=== PATIENT | male | born 1980 | race African-American/Black ===

== ENCOUNTER 2018-03-12 18:21 | Inpatient (IN) | payer MEDICAID ==
[~2018-03-12] VITALS: Ht 172.7 cm; Wt 65.8 kg
[2018-03-12] MEDS ORDERED: SODIUM CHLORIDE 0.9% 1,000 ML IV ONE (18:31)
[2018-03-12] MEDS ORDERED: LORAZEPAM 2MG/ML CPJ ONE (18:33)
[2018-03-12] MEDS ORDERED: LORAZEPAM 2MG/ML CPJ IV ONE ×3 (18:45→20:00)
[2018-03-12] MEDS ORDERED: LEVETIRACETAM 500MG PREMIX 100 ML IV ONE ×2 (18:45→20:00)
[2018-03-12 19:21] LABS: HEMATOCRIT. 51.2 % (42.0-52.0); HEMOGLOBIN. 15.7 g/dL (14.0-18.0); MEAN CORPUSCULAR HEMOGLOBIN 28.9 pg (28.0-32.0); MEAN CORPUSCULAR VOLUME 94.2 fL (80.0-94.0); MEAN PLATELET VOLUME 11.1 fl (7.4-10.4); PLATELET 190 x1000/uL (130-400); RED BLOOD CELL COUNT 5.44 mill/uL (4.7-6.1); RED CELL DISTRIBUTION WIDTH 14.1 % (11.6-14.6)
[2018-03-12 19:25] LABS: CHLORIDE 102 mEq/L (98-107)
[2018-03-12 19:31] LABS: ETHANOL BLOOD < 10 mg/dL
[2018-03-12 19:37] LABS: CARBAMAZEPINE < 0.5 ug/mL (4-12); PHENOBARBITAL < 2.1 ug/mL (15.0-40.0)
[2018-03-12 19:55] LABS: NUCLEATED RED BLOOD CELLS 1 /100 WBC; PLATELET ESTIMATE NORMAL
[2018-03-12 21:24] LABS: BG BASE EXCESS -4.8 mmol/L (-2.0-2.0); BG CARBOXYHEMOGLOBIN 0.3 % (0.5-1.5); BG DEOXYHEMOGLOBIN 5.2 % (0.0-5.0); BG FRACTION INSPIRED OXYGEN 21; BG HCO3 ACT 20.2 mmol/L (22.0-26.0); BG METHEMOGLOBIN 0.3 % (0.0-1.5); BG OXYGEN SATURATION 94.8 % (92.0-98.5); BG OXYHEMOGLOBIN 94.2 % (94.0-97.0); BG PCO2 37.1 mmHg (35.0-45.0); BG PH 7.353 (7.350-7.450); BG PO2 82.1 mmHg (75.0-100.0); BG SAMPLE SITE RIGHT RADIAL; BG TOTAL HEMOGLOBIN 14.5 g/dL (12.0-18.0); BG VENT MODE ROOM AIR
[2018-03-12] MEDS ORDERED: CLONIDINE 0.1MG TABLET PO PRN (22:30)
[2018-03-12] MEDS ORDERED: LORAZEPAM 2MG/ML CPJ IV PRN (22:30)
[2018-03-12] MEDS ORDERED: DOCUSATE SODIUM 100MG CAPSULE PO PRN (22:30)
[2018-03-12] MEDS ORDERED: ACETAMINOPHEN 325MG TABLET PO PRN (22:30)
[2018-03-12] MEDS ORDERED: DEXTROSE 50% WATER 50ML SYRINGE IV PRN ×2 (22:45)
[2018-03-12] MEDS: INSULIN LISPRO 100 UNITS/ML SUBCUT SCH (23:01)
[2018-03-13] VITALS: BP 111/57
[2018-03-13] MEDS ORDERED: SODIUM CHLORIDE 0.9% 1,000 ML IV SCH (00:01)
[2018-03-13 00:15] VITALS: BP 111/57
[2018-03-13 00:51] LABS: CLARITY URINE CLEAR (CLEAR); COLOR URINE YELLOW (YELLOW); KETONES URINE TRACE (NEGATIVE); LEUKOCYTE ESTERASE URINE NEGATIVE (NEGATIVE); NITRITE URINE NEGATIVE (NEGATIVE); OCCULT BLOOD URINE NEGATIVE (NEGATIVE); PROTEIN URINE 1+ (NEGATIVE); SPECIFIC GRAVITY URINE 1.012 (1.005-1.030); UROBILINOGEN URINE 0.2 E.U./dL (0.2-1.0)
[2018-03-13 01:00] LABS: *AMPHETAMINES SCREEN URINE NEGATIVE (NEGATIVE); *BARBITURATES SCREEN URINE NEGATIVE (NEGATIVE)
[2018-03-13 01:01] LABS: *BENZODIAZEPINES SCREEN URINE NEGATIVE (NEGATIVE); *COCAINE SCREEN URINE NEGATIVE (NEGATIVE); CANNABINOID URINE SCREEN PRESUMTIVE POSITIVE (NEGATIVE); METHADONE URINE SCREEN NEGATIVE (NEGATIVE); OPIATES URINE SCREEN NEGATIVE (NEGATIVE); PHENCYCLIDINE URINE SCREEN NEGATIVE (NEGATIVE)
[2018-03-13] MEDS ORDERED: LEVE1000 PO (02:03)
[2018-03-13 04:00] VITALS: BP 128/77
[2018-03-13] MEDS: BLOOD SUGAR DIAGNOSTIC STRIP TEST SCH ×2 (07:33→12:10)
[2018-03-13] MEDS: INSULIN LISPRO 100 UNITS/ML SUBCUT SCH ×2 (07:40→12:40)
[2018-03-13 08:00] VITALS: BP 124/74
[2018-03-13 08:14] LABS: PHOSPHORUS 2.8 mg/dL (2.5-4.9)
[2018-03-13 08:17] LABS: T4 FREE 1.21 ng/dL (0.76-1.46)
[2018-03-13 09:20] LABS: HEMATOCRIT. 43.1 % (42.0-52.0); HEMOGLOBIN. 14.4 g/dL (14.0-18.0); MEAN CORPUSCULAR VOLUME 87.1 fL (80.0-94.0); PLATELET 138 x1000/uL (130-400); RED BLOOD CELL COUNT 4.96 mill/uL (4.7-6.1); RED CELL DISTRIBUTION WIDTH 13.1 % (11.6-14.6)
[2018-03-13] MEDS ORDERED: FOLIC ACID 1MG TABLET PO SCH (09:45)
[2018-03-13] MEDS ORDERED: MULTIVITAMINS,THER W-MINERALS TABLET PO SCH (09:45)
[2018-03-13] MEDS ORDERED: THIAMINE HCL 100MG TABLET PO SCH (09:45)
[2018-03-13 12:00] VITALS: BP 141/89
[2018-03-13 14:27] LABS: PLATELET ESTIMATE NORMAL
[2018-03-14] MEDS ORDERED: LEVETIRACETAM 500 MG in SODIUM CHLORIDE 0.9% 100 ML IV SCH (09:00)
[2018-03-14] MEDS ORDERED: PANTOPRAZOLE SODIUM 40 MG/VIAL IV SCH (09:00)
== END 2018-03-13 13:50 | disposition left against medical advice (07) | DRG 53 ==
LOC: ER 18:21 → EDBD 18:21 → 8WST 22:21 → ENRESERV 23:11
PROVIDERS: ADMIT Family Medicine Adult Medicine; ATTEND Family Medicine Adult Medicine
DX: G40.901 Epilepsy, unspecified, not intractable, with status epilepticus (principal); N17.9 Acute kidney failure, unspecified; M62.82 Rhabdomyolysis; E83.41 Hypermagnesemia; E86.0 Dehydration; F12.90 Cannabis use, unspecified, uncomplicated; G31.9 Degenerative disease of nervous system, unspecified; Z91.19 Patient's noncompliance with other medical treatment and regimen; Z53.21 Procedure and treatment not carried out due to patient leaving prior to being seen by health care provider
CPT/HCPCS: 36415; 36600; 70544; 70553; 80048; 80156; 80165; 80184; 80185; 80305; 82375; 82550; 82805; 82962; 83735; 84100; 84439; 84443; 93005; 96365; 96375; 96376; 99291; J1953; J2060; J7030; J7040; J7050

== ENCOUNTER 2024-03-05 14:14 | Emergency (ER) | payer MEDICAID ==
[~2024-03-05] VITALS: Ht 177.8 cm; Wt 73.0 kg
[~2024-03-05 14:14] MED LIST: LEVE1000 PO
[2024-03-05 14:16] VITALS: BP 122/75; PULSE 62; RESP 16; TEMP 36.9; O2SAT 99
== END 2024-03-05 15:20 | disposition left against medical advice (07) ==
LOC: ER 14:14
DX: R56.9 Unspecified convulsions (principal); Z98.52 Vasectomy status; Z53.21 Procedure and treatment not carried out due to patient leaving prior to being seen by health care provider

== ENCOUNTER 2024-04-16 19:59 | Emergency (ER) | payer MEDICAID ==
[~2024-04-16] VITALS: Ht 182.9 cm; Wt 69.0 kg
[2024-04-16 20:19] VITALS: O2SAT 100
[2024-04-16] MEDS: TETANUS, DIPHTHERIA, PERTUSSIS VAC/PF 0.5ML (>10YR OLD) IM ONE (21:28)
[2024-04-16 22:25] VITALS: BP 131/79; PULSE 59; RESP 18; TEMP 36.8; O2SAT 99
[2024-04-17] MEDS ORDERED: PROPOFOL 200MG/20ML VIAL IV ONE (09:18)
[2024-04-17] MEDS ORDERED: DEXAMETHASONE 4MG/ML 1ML VIAL ONE (09:18)
[2024-04-17] MEDS ORDERED: ONDANSETRON HCL 4MG/2ML INJ ONE (09:18)
[2024-04-17] MEDS ORDERED: MIDAZOLAM HCL 2 MG/2 ML VIAL ONE (09:19)
[2024-04-17] MEDS ORDERED: FENTANYL CITRATE/PF 50MCG/ML 2ML VIAL ONE (09:19)
== END 2024-04-16 22:33 | disposition home or self-care (01) ==
LOC: ER 20:07
DX: S01.01XA Laceration without foreign body of scalp, initial encounter (principal); S09.90XA Unspecified injury of head, initial encounter; Z79.899 Other long term (current) drug therapy; G40.909 Epilepsy, unspecified, not intractable, without status epilepticus; W01.0XXA Fall on same level from slipping, tripping and stumbling without subsequent striking against object, initial encounter; Y93.89 Activity, other specified; Y92.89 Other specified places as the place of occurrence of the external cause; Y99.8 Other external cause status
CPT/HCPCS: 12002; 90471; 90715; 99285; J1100; J2250; J2405; J2704; J3010

== ENCOUNTER 2024-04-17 12:25 | Emergency (ER) | payer MEDICAID ==
[~2024-04-17] VITALS: Ht 188 cm; Wt 68.2 kg
[2024-04-17 12:47] VITALS: O2SAT 99
[2024-04-17] MEDS: ACETAMINOPHEN 325MG TABLET PO ONE (13:45)
[2024-04-17 14:37] VITALS: BP 117/68; PULSE 62; RESP 18; TEMP 36.9; O2SAT 99
== END 2024-04-17 14:39 | disposition home or self-care (01) ==
LOC: ER 12:25
DX: S01.01XA Laceration without foreign body of scalp, initial encounter (principal); S09.90XA Unspecified injury of head, initial encounter; X58.XXXA Exposure to other specified factors, initial encounter; Y93.89 Activity, other specified; Y92.89 Other specified places as the place of occurrence of the external cause; Y99.8 Other external cause status
CPT/HCPCS: 99284

== ENCOUNTER 2024-04-26 11:17 | Emergency (ER) | payer MEDICAID ==
[~2024-04-26] VITALS: Ht 188 cm; Wt 68.0 kg
[2024-04-26 11:19] VITALS: BP 167/84; RESP 16; TEMP 36.9; O2SAT 98
[2024-04-26 11:21] VITALS: PULSE 79; O2SAT 97
== END 2024-04-26 12:50 | disposition home or self-care (01) ==
LOC: ER 11:17
DX: S01.01XD Laceration without foreign body of scalp, subsequent encounter (principal); R56.9 Unspecified convulsions; X58.XXXD Exposure to other specified factors, subsequent encounter
CPT/HCPCS: 99281